=== PATIENT | female | born 1975 | race Caucasian/White ===

== ENCOUNTER 2018-05-15 19:39 | Emergency (ER) | payer OTHER ==
--- NOTE | 2018-05-15 20:11 | PDOC ---
Rapid Medical Evaluation Medical Evaluation: Allergies Allergy/AdvReac Type Severity Reaction Status Date / Time No Known Allergies Allergy Verified 10/05/14 14:24 I have performed a brief in-person evaluation of this patient. The patient presents with a chief complaint of: Twisted L ankle while walking yesterday. Took Advil 200 mg at 7 PM I have ordered the following: L foot/ankle xray, UCG The patient will proceed to the ED for further evaluation. 05/15/18 20:10
[2018-05-15 20:13] VITALS: BP 145/85; PULSE 85; TEMP 98.2; BMI 27.4
--- NOTE | 2018-05-15 21:19 | PDOC ---
History of Present Illness - General Chief Complaint: Injury Stated Complaint: LT FOOT PAIN Time Seen by Provider: 05/15/18 21:01 - History of Present Illness Initial Comments: 05/15/18 21:14 42-year-old female without comorbidities presents for evaluation of left ankle pain after an inversion-type injury yesterday. She did not fall and hit her head. Her only complaint is left ankle pain. She points to the lateral aspect of the left ankle as the area of her discomfort. Past History - Past Medical History Allergies/Adverse Reactions: Allergies Allergy/AdvReac Type Severity Reaction Status Date / Time No Known Allergies Allergy Verified 05/15/18 20:13 Home Medications: Ambulatory Orders Oxycodone HCl/Acetaminophen [Percocet 5/325 -] 1 tab PO Q4H PRN #20 tablet 10/05 Silver Sulfadiazine [Silvadene] 85 gm TP BID #1 tube 10/05/14 - Suicide/Smoking/Psychosocial Hx Smoking History: Never smoked Have you smoked in the past 12 months: No Information on smoking cessation initiated: No Hx Alcohol Use: No Drug/Substance Use Hx: No Substance Use Type: None Review of Systems - Review of Systems Musculoskeletal: Yes: Joint Pain *Physical Exam - Vital Signs Last Vital Signs Temp Pulse Resp BP Pulse Ox 98.2 F 85 18 145/85 100 05/15/18 20:11 05/15/18 20:11 05/15/18 20:11 05/15/18 20:11 05/15/18 20:11 - Physical Exam Comments: 05/15/18 21:16 Left ankle skin color and temperature are normal. There is mild lateral swelling. There is no tenderness about the knee, proximal fibula, or along its distal coarse. No tenderness about the medial malleolus navicular base of fifth metatarsal. Mild tenderness over the lateral malleolus and ATFL. She has no instability or gross sensorimotor deficits. She is neurovascularly intact. Moderate Sedation - Procedure Monitoring Vital Signs: Procedure Monitoring Vital Signs Temperature 98.2 F 05/15/18 20:11 Pulse Rate 85 05/15/18 20:11 Respiratory Rate 18 05/15/18 20:11 Blood Pressure 145/85 05/15/18 20:11 O2 Sat by Pulse Oximetry (%) 100 05/15/18 20:11 ED Treatment Course - ADDITIONAL ORDERS Additional order review: Laboratory Results 05/15/18 20:48 Urine HCG, Qual Negative Medical Decision Making - Medical Decision Making 05/15/18 21:17 x rays show no evidence of fracture trauma or destructive process. Left lateral ankle sprain weight-bear as tolerated with use of Aircast and crutches and follow-up with orthopedics. *DC/Admit/Observation/Transfer Diagnosis at time of Disposition: Ankle sprain - Discharge Dispostion Disposition: HOME Condition at time of disposition: Stable Decision to Admit order: No - Referrals Referrals: John Jordan MD [Staff Physician] - - Patient Instructions Printed Discharge Instructions: Ankle Sprain, DI for Ankle Sprain Additional Instructions: You may take Tylenol and Motrin for pain as directed. Return to the emergency room should symptoms worsen or go unresolved. He may weight-bear as tolerated with the use of crutches and the Aircast. Please follow-up with orthopedic surgery in 2-3 days for further evaluation and treatment options. - Post Discharge Activity
== END 2018-05-15 21:23 | disposition home or self-care (01) ==
LOC: JERFT 19:39
PROC: 2W3RX1Z Immobilization of Left Lower Leg using Splint (ICD-10-PCS; principal; 2018-05-15)
DX: S93.492A Sprain of other ligament of left ankle, initial encounter (principal); X50.1XXA Overexertion from prolonged static or awkward postures, initial encounter; Y93.89 Activity, other specified; Y92.89 Other specified places as the place of occurrence of the external cause; Y99.8 Other external cause status
CPT/HCPCS: 73610-TC-LT-FY; 73630-TC-LT; 84703; 99281-25

== ENCOUNTER 2019-03-03 09:24 | Emergency (ER) | payer OTHER ==
[2019-03-03 09:32] VITALS: BP 131/74; PULSE 75; TEMP 98.1; BMI 34.3
[2019-03-03] MEDS ORDERED: IBUPROFEN 400 MG TABLET (FP) PO ONE ×3 (10:35→10:55)
--- NOTE | 2019-03-03 10:57 | PDOC ---
History of Present Illness - General Chief Complaint: Injury Stated Complaint: INJURY Time Seen by Provider: 03/03/19 09:56 History Source: Patient - History of Present Illness Occurred: reports: other Severity: reports: moderate Upper Extremity Pain Location: left: elbow Method of Injury: reports: fell Past History - Past Medical History Allergies/Adverse Reactions: Allergies Allergy/AdvReac Type Severity Reaction Status Date / Time No Known Allergies Allergy Verified 03/03/19 09:32 Home Medications: Ambulatory Orders Oxycodone HCl/Acetaminophen [Percocet 5/325 -] 1 tab PO Q4H PRN #20 tablet 10/05 Silver Sulfadiazine [Silvadene] 85 gm TP BID #1 tube 10/05/14 Ibuprofen [Motrin -] 600 mg PO QID #28 tablet 03/03/19 COPD: No - Psycho Social/Smoking Cessation Hx Smoking History: Never smoked Have you smoked in the past 12 months: No Information on smoking cessation initiated: No Hx Alcohol Use: No Drug/Substance Use Hx: No Substance Use Type: None Review of Systems - Review of Systems Musculoskeletal: Yes: Joint Pain. No: Joint Swelling Neurological: No: Numbness, Tingling, Weakness *Physical Exam - Vital Signs Last Vital Signs Temp Pulse Resp BP Pulse Ox 98.1 F 75 17 131/74 100 03/03/19 09:30 03/03/19 09:30 03/03/19 09:30 03/03/19 09:30 03/03/19 09:30 - Physical Exam General Appearance: Yes: Appropriately Dressed, Mild Distress HEENT: positive: Normal Voice Neck: positive: Supple Respiratory/Chest: negative: Respiratory Distress Extremity: positive: Normal Inspection, Tender (to medial L elbow, no swelling, FROMI, NVI) Integumentary: positive: Dry, Warm Neurologic: positive: Fully Oriented, Alert, Normal Mood/Affect ED Treatment Course - RADIOLOGY Radiology Studies Ordered: Category Date Time Status ELBOW-LEFT [RAD] Stat Radiology 03/03/19 10:35 Ordered Medical Decision Making - Medical Decision Making 03/03/19 10:55 43-year-old female no significant history here with left elbow pain status post fall several days ago. No swelling. Has not taken anything for pain See exam Elbow sprain X-ray negative for fracture -Sling -dc w/ pain control-pmd f/u as needed - Discharge - Discharge Information Problems reviewed: Yes Clinical Impression/Diagnosis: Elbow sprain Qualifiers: Encounter type: initial encounter Laterality: left Qualified Code(s): S53.402A - Unspecified sprain of left elbow, initial encounter - Additional Discharge Information Prescriptions: Ibuprofen [Motrin -] 600 mg PO QID #28 tablet - Follow up/Referral Referrals: Henry Tamayo MD [Primary Care Provider] - - Patient Discharge Instructions Patient Printed Discharge Instructions: DI for Elbow Sprain Additional Instructions: [place]ter radiografa del codo no muestra fractura. Lo ms probable es que hayas sufrido un esguince. [place] Motrin o Tylenol para el dolor y use eliana honda para mayor comodidad hasta que los sntomas desaparezcan - Post Discharge Activity
== END 2019-03-03 11:04 | disposition home or self-care (01) ==
LOC: JERFT 09:24
DX: S53.402A Unspecified sprain of left elbow, initial encounter (principal); W01.0XXA Fall on same level from slipping, tripping and stumbling without subsequent striking against object, initial encounter; Y93.89 Activity, other specified; Y92.89 Other specified places as the place of occurrence of the external cause; Y99.8 Other external cause status
CPT/HCPCS: 73070-TC-LT-FY; 99281-25

== ENCOUNTER 2020-01-24 12:04 | Emergency (ER) | payer OTHER ==
[2020-01-24 12:10] VITALS: BP 146/78; PULSE 80; TEMP 98.8; BMI 32.5
[2020-01-24] MEDS ORDERED: LIDOCAINE 5% TOPICAL PATCH TP ONE (12:45)
[2020-01-24] MEDS ORDERED: LIDOCAINE 5% TOPICAL PATCH ONE (12:47)
--- NOTE | 2020-01-24 12:52 | PDOC ---
History of Present Illness - General Chief Complaint: Back Pain Stated Complaint: BACK PAIN FOR ONE MONTH Time Seen by Provider: 01/24/20 12:25 History Source: Patient Exam Limitations: Clinical Condition - History of Present Illness Initial Comments: 01/24/20 12:47 Patient with no significant past medical history present with complaint of 1 month history right lower back pain which has been intermittent which is described as cramping pain to right lower back. Denies radiculopathy. Patient reported pain is mild today and only have 2 out of 10 pain. Denies urinary frequency, dysuria, burning urination or urgency. 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 Denies any other symptoms Is this a multiple visit Asthma Patient?: No Timing/Duration: other (1 month) Past History - Medical History Allergies/Adverse Reactions: Allergies Allergy/AdvReac Type Severity Reaction Status Date / Time No Known Allergies Allergy Verified 01/24/20 12:09 Home Medications: Ambulatory Orders Oxycodone HCl/Acetaminophen [Percocet 5/325 -] 1 tab PO Q4H PRN #20 tablet 10/05/14 Silver Sulfadiazine [Silvadene] 85 gm TP BID #1 tube 10/05/14 Ibuprofen [Motrin -] 600 mg PO QID #28 tablet 03/03/19 Cyclobenzaprine HCl [Flexeril 10 mg] 10 mg PO BID PRN #10 tablet 10/15/19 Methocarbamol [Robaxin -] 500 mg PO BID PRN #14 tablet 01/24/20 Methylprednisolone [Medrol Dose Kashif] 4 mg PO ASDIR #21 tablet 01/24/20 COPD: No - Reproductive History Is Patient Now?: No - Psycho-Social/Smoking History Smoking History: Never smoked Have you smoked in the past 12 months: No Information on smoking cessation initiated: No - Substance Abuse Hx (Audit-C & DAST Scrn) How often the patient has a drink containing alcohol: Never Score: In Men: 4 or > Positive; In Women: 3 or > Positive: 0 Screen Result (Pos requires Nsg. Audit-10AR): Negative In the last yr the pt used illegal drug/Rx for NonMed reason: No Score: Yes response is considered Positive: 0 Screen Result (Positive result requires Nsg. DAST-10): Negative Review of Systems - Review of Systems Able to Perform ROS?: Yes Is the patient limited Faroese proficient: No Constitutional: No: Chills, Fever, Malaise HEENTM: No: Symptoms Reported, See HPI, Eye Pain, Blurred Vision, Tearing, Recent change in vision, Double Vision, Cataracts, Ear Pain, Ocular Prothesis, Ear Discharge, Nose Pain, Nose Congestion, Tinnitus, Nose Bleeding, Hearing Loss, Throat Pain, Throat Swelling, Mouth Pain, Dental Problems, Difficulty Swallowing, Mouth Swelling, Other Respiratory: No: Symptoms reported, See HPI, Cough, Orthopnea, Shortness of Breath, SOB with Exertion, SOB at Rest, Stridor, Wheezing, Productive cough, Hemoptysis, Other Cardiac (ROS): No: Symptoms Reported, See HPI, Chest Pain, Edema, Irregular Heart Rate, Lightheadedness, Palpitations, Syncope, Chest Tightness, Other ABD/GI: No: Symptoms Reported, See HPI, Nausea, Vomiting Musculoskeletal: Yes: Symptoms Reported, See HPI, Back Pain (Right low back) Integumentary: No: Symptoms Reported, See HPI Neurological: No: Numbness, Paresthesia, Tingling All Other Systems: Reviewed and Negative *Physical Exam - Vital Signs Last Vital Signs Temp Pulse Resp BP Pulse Ox 98.8 F 80 19 146/78 99 01/24/20 12:06 01/24/20 12:06 01/24/20 12:06 01/24/20 12:06 01/24/20 12:06 - Physical Exam 01/24/20 12:50 GENERAL: Well developed, well nourished. Awake and alert. No acute distress. CARDIOVASCULAR: Regular rate and rhythm. No murmurs, rubs, or gallops. PULMONARY: No evidence of respiratory distress. Lungs clear to auscultation bilaterally. No wheezing, rales or rhonchi. ABDOMINAL: Soft. Non-tender. Non-distended. No rebound or guarding. No organomegaly. Normoactive bowel sounds MUSCULOSKELETAL : No tenderness over posterior paravertebral muscle of lumbosacral spine of T8-T10 on bilateral sides. No midline tenderness. No bony deformities EXTREMITIES: No cyanosis. No clubbing. No edema. No calf tenderness. SKIN: Warm and dry. Normal capillary refill. No rashes. No jaundice. NEUROLOGICAL: Alert, awake, appropriate. No motor deficits in the lower extremities. Gait is normal without ataxia. PSYCHIATRIC: Cooperative. Good eye contact. Appropriate mood and affect. General Appearance: Yes: Nourished, Appropriately Dressed. No: Apparent Distress Medical Decision Making - Medical Decision Making 01/24/20 12:48 Patient with no significant past medical history present with complaint of 1 month history right lower back pain which has been intermittent which is described as cramping pain to right lower back. Denies radiculopathy. Patient reported pain is mild today and only have 2 out of 10 pain. Denies urinary frequency, dysuria, burning urination or urgency. 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 Denies any other symptoms Clinical exam unremarkable. No back tenderness elicited on exam. No midline tenderness. No radiculopathy. No abdominal tenderness. Patient symptoms likely back strain versus less likely cystitis. Lidocaine patch ordered for back pain. UA and urine culture urine hCG ordered to rule out or cystitis. Patient to be discharged home on naproxen and Robaxin PRN for pain and spasm with orthopedics follow-up as needed if normal urine 01/24/20 13:56 Urine negative. UA shows some WBCs but given patient is symptomatic of urinary symptoms, will wait for urine culture to treat. Patient stable for discharge on Medrol Kashif for inflammatory effect and Robaxin for spasm with advised to do hot compresses with neurosurgery and PCP follow-up Discharge - Discharge Information Problems reviewed: Yes Clinical Impression/Diagnosis: Musculoskeletal back pain Condition: Stable Disposition: HOME - Admission No - Additional Discharge Information Prescriptions: Methylprednisolone [Medrol Dose Kashif] 4 mg PO ASDIR #21 tablet Methocarbamol [Robaxin -] 500 mg PO BID PRN #14 tablet PRN Reason: Back Pain - Follow up/Referral Referrals: Dereck Pedraza MD, [facility] [Staff Physician] - - Patient Discharge Instructions Patient Printed Discharge Instructions: Low Back Pain Additional Instructions: Your urine was normal and shows no infection. Your pain is likely from muscle pain. Take prescribed medication as prescribed for pain and spasm. Apply heat to lower back as needed for pain. Follow-up referred to orthopedic extension specialist if symptoms persist for more than 4 days Print Language: GIBRALTARIAN - Post Discharge Activity Work/Back to School Note: Back to Work
[2020-01-24 13:42] LABS: EPI CELLS 21 /uL (0-25.1); HYALINE CASTS 0 /uL (0-3.1); URINE APPEARANCE CLEAR; URINE BACTERIA 1026 /uL (0-1359); URINE BILIRUBIN NEGATIVE (NEGATIVE); URINE COLOR YELLOW; URINE GLUCOSE (UA) NEGATIVE (NEGATIVE); URINE KETONE NEGATIVE (NEGATIVE); URINE LEUK ESTERASE NEGATIVE (NEGATIVE); URINE NITRITE NEGATIVE (NEGATIVE); URINE PROTEIN 2+ (NEGATIVE); URINE RBC 16 /uL (0-23.9); URINE UROBILINOGEN 0.2 mg/dL (0.2-1.0); URINE WBC 36 /uL (0-25.8)
[2020-01-24 13:51] LABS: HCG,QUALITATIVE URINE NEGATIVE
== END 2020-01-24 13:57 | disposition home or self-care (01) ==
LOC: JERFT 12:04
DX: M54.9 Dorsalgia, unspecified (principal)
CPT/HCPCS: 81003; 84703; 87086; 99284-25

== ENCOUNTER 2020-09-01 17:51 | Emergency (ER) | payer OTHER ==
[2020-09-01 18:04] VITALS: TEMP 98.5; BMI 32.4
[2020-09-01] MEDS ORDERED: ACETAMINOPHEN 1000 MG/100 ML VIAL (NON FORMULARY) IVPB ONE (19:34)
[2020-09-01] MEDS ORDERED: ONDANSETRON 4 MG/2 ML VIAL IVPUSH ONE (19:34)
[2020-09-01] MEDS ORDERED: SODIUM CHLORIDE 1,000 ML IV STA (19:34)
[2020-09-01] MEDS ORDERED: ACETAMINOPHEN INJECTION 100 ML IVPB ONE (19:47)
[2020-09-01 20:40] LABS: BASO % 0.6 % (0-2.0); EOS % 1.9 % (0-4.5); HEMATOCRIT 33.8 % (32.4-45.2); HEMOGLOBIN 10.8 GM/dL (10.7-15.3); LYMPH % 20.1 % (8-40); MCH 21.6 pg (25.7-33.7); MCHC 31.8 g/dl (32.0-36.0); MEAN PLT VOLUME 9.2 fl (7.5-11.1); MONO % 8.3 % (3.8-10.2); NEUT % 69.1 % (42.8-82.8); PLATELET COUNT 282 K/MM3 (134-434); RBC 4.97 M/mm3 (3.60-5.2); RDW 17.9 % (11.6-15.6); WHITE BLOOD COUNT 5.3 K/mm3 (4.0-10.0)
[2020-09-01 20:48] LABS: PROTHROMBIN TIME (PATIENT) 12.1 SEC (9.7-13.0)
[2020-09-01 20:51] LABS: CHLORIDE 99 mmol/L (98-107); SODIUM 137 mmol/L (136-145)
[2020-09-01 20:53] LABS: CALCIUM 8.7 mg/dL (8.5-10.1); GLUCOSE,RANDOM 142 mg/dL (74-106)
[2020-09-01 20:53] LABS: EPI CELLS >36 /uL (0-25.1); HYALINE CASTS 5 /uL (0-3.1); URINE APPEARANCE CLOUDY; URINE BACTERIA 1435 /uL (0-1359); URINE BILIRUBIN NEGATIVE (NEGATIVE); URINE COLOR YELLOW; URINE GLUCOSE (UA) NEGATIVE (NEGATIVE); URINE KETONE NEGATIVE (NEGATIVE); URINE LEUK ESTERASE NEGATIVE (NEGATIVE); URINE NITRITE NEGATIVE (NEGATIVE); URINE PROTEIN 3+ (NEGATIVE); URINE WBC 46 /uL (0-25.8)
[2020-09-01 20:54] LABS: ALBUMIN 2.8 g/dl (3.4-5.0); ANION GAP 6 MMOL/L (8-16); BLOOD UREA NITROGEN 10.8 mg/dL (7-18); CO2 32 mmol/L (21-32); LIPASE 129 U/L (73-393)
[2020-09-01 20:56] LABS: SGPT/ALT 24 U/L (13-61)
[2020-09-01 20:57] LABS: CREATININE 0.7 mg/dL (0.55-1.3); SGOT/AST 19 U/L (15-37)
[2020-09-01 20:58] LABS: BILIRUBIN,TOTAL 0.3 mg/dL (0.2-1); TOT PROT 6.4 g/dl (6.4-8.2)
[2020-09-01 20:59] LABS: ALK PHOS 72 U/L (45-117)
[2020-09-01 21:08] LABS: HCG,QUALITATIVE URINE Positive
[2020-09-01 22:14] LABS: ANISOCYTOSIS 1+; MACROCYTOSIS 0; PLATELET ESTIMATE NORMAL; TEAR DROP CELLS 1+
[2020-09-01 22:39] LABS: URINE RBC 147 /uL (0-23.9)
[2020-09-01 23:26] LABS: EPI CELLS >36 /uL (0-25.1); HYALINE CASTS 2 /uL (0-3.1); URINE APPEARANCE CLEAR; URINE BACTERIA 413 /uL (0-1359); URINE BILIRUBIN NEGATIVE (NEGATIVE); URINE COLOR YELLOW; URINE GLUCOSE (UA) NEGATIVE (NEGATIVE); URINE KETONE NEGATIVE (NEGATIVE); URINE LEUK ESTERASE NEGATIVE (NEGATIVE); URINE NITRITE NEGATIVE (NEGATIVE); URINE PROTEIN 2+ (NEGATIVE); URINE RBC 105 /uL (0-23.9); URINE WBC 10 /uL (0-25.8)
[2020-09-02 00:06] VITALS: BP 142/76; PULSE 89
== END 2020-09-02 00:06 | disposition home or self-care (01) ==
LOC: JER 17:51
PROC: 3E0333Z Introduction of Anti-inflammatory into Peripheral Vein, Percutaneous Approach (ICD-10-PCS; principal; 2020-09-01)
PROC: 3E033GC Introduction of Other Therapeutic Substance into Peripheral Vein, Percutaneous Approach (ICD-10-PCS; 2020-09-01)
PROC: 3E0337Z Introduction of Electrolytic and Water Balance Substance into Peripheral Vein, Percutaneous Approach (ICD-10-PCS; 2020-09-01)
DX: R31.9 Hematuria, unspecified (principal); R10.9 Unspecified abdominal pain
CPT/HCPCS: 36415; 71046-TC-FY; 74176-TC; 76817-TC; 80053; 81003; 82550; 83690; 84484; 84702; 84703; 85025; 85610; 87086; 87804; 99285-25; C9803; J0131; U0003; U0005

== ENCOUNTER 2020-11-14 13:47 | Emergency (ER) | payer OTHER ==
[2020-11-14 14:05] VITALS: BP 126/86; PULSE 90; TEMP 98; BMI 39.1
[2020-11-14] MEDS ORDERED: diphenhydrAMINE HCL 25 MG CAPSULE (FP) PO ONE ×3 (14:51→14:57)
[2020-11-14] MEDS ORDERED: predniSONE 20 MG TABLET (UD) PO ONE ×2 (14:58→15:17)
[2020-11-14] MEDS ORDERED: predniSONE 20 MG TABLET (UD) ONE ×2 (15:05→15:18)
== END 2020-11-14 16:09 | disposition home or self-care (01) ==
LOC: JERFT 13:47 → JER 13:47 → JERFT 16:09
DX: L23.7 Allergic contact dermatitis due to plants, except food (principal)
CPT/HCPCS: 99283-25

== ENCOUNTER 2020-12-12 22:53 | Emergency (ER) | payer OTHER ==
[2020-12-12 23:10] VITALS: TEMP 98.1; BMI 40.3
[2020-12-13] MEDS ORDERED: FAMOTIDINE 20 MG TABLET PO ONE (00:20)
[2020-12-13] MEDS ORDERED: predniSONE 20 MG TABLET (UD) PO ONE (00:20)
[2020-12-13] MEDS ORDERED: DICLOXACILLIN SODIUM 250 MG CAPSULE PO ONE (00:20)
[2020-12-13] MEDS ORDERED: diphenhydrAMINE HCL 50 MG CAPSULE PO ONE (00:20)
[2020-12-13] MEDS ORDERED: predniSONE 20 MG TABLET (UD) ONE (00:33)
[2020-12-13] MEDS ORDERED: diphenhydrAMINE HCL 25 MG CAPSULE (FP) PO ONE (00:33)
[2020-12-13] MEDS ORDERED: FAMOTIDINE 20 MG TABLET ONE (00:33)
[2020-12-13 01:32] VITALS: BP 151/88; PULSE 83
== END 2020-12-13 01:33 | disposition home or self-care (01) ==
LOC: JER 22:53
DX: T78.40XA Allergy, unspecified, initial encounter (principal)
CPT/HCPCS: 99283-25

== ENCOUNTER 2021-05-22 17:35 | Emergency (ER) | payer OTHER ==
[2021-05-22 18:27] VITALS: BP 116/77; PULSE 82; TEMP 98.7; BMI 34.3
== END 2021-05-22 20:05 | disposition home or self-care (01) ==
LOC: JERFT 17:35
DX: T59.893A Toxic effect of other specified gases, fumes and vapors, assault, initial encounter (principal)
CPT/HCPCS: 99282-25

== ENCOUNTER 2021-10-04 22:45 | Emergency (ER) | payer OTHER ==
[2021-10-04 23:02] VITALS: BP 119/78; PULSE 80; TEMP 98.9; BMI 39.9
== END 2021-10-05 01:20 | disposition home or self-care (01) ==
LOC: JER 22:45
DX: J06.9 Acute upper respiratory infection, unspecified (principal)
CPT/HCPCS: 99282-25

== ENCOUNTER 2021-12-13 09:53 | Emergency (ER) | payer OTHER ==
[2021-12-13 10:20] VITALS: BP 137/84; PULSE 74; TEMP 98; BMI 43.2
[2021-12-13] MEDS ORDERED: ACETAMINOPHEN 500 MG TABLET (FP) PO ONE (10:30)
[2021-12-13] MEDS ORDERED: ACETAMINOPHEN 500 MG TABLET (FP) ONE (12:24)
== END 2021-12-13 16:39 | disposition home or self-care (01) ==
LOC: JER 09:53
DX: H10.33 Unspecified acute conjunctivitis, bilateral (principal)
CPT/HCPCS: 0241U-QW; 99283-25

== ENCOUNTER 2022-12-09 20:54 | Emergency (ER) | payer OTHER ==
[2022-12-09 20:58] VITALS: BP 143/90; PULSE 104; RESP 19; TEMP 99.1; BMI 43.2
== END 2022-12-10 00:17 | disposition home or self-care (01) ==
LOC: JERFT 20:54
DX: U07.1 COVID-19 (principal); R50.9 Fever, unspecified; R51.9 Headache, unspecified; R07.0 Pain in throat; R63.0 Anorexia; R43.9 Unspecified disturbances of smell and taste; R53.83 Other fatigue
CPT/HCPCS: 0241U-QW; 99283-25

== ENCOUNTER 2023-05-12 19:49 | Emergency (ER) | payer OTHER ==
[2023-05-12 20:12] VITALS: BP 140/79; PULSE 83; RESP 18; TEMP 98.9; BMI 36.6
== END 2023-05-12 22:02 | disposition home or self-care (01) ==
LOC: JERFT 19:49
DX: R05.9 Cough, unspecified (principal); R50.9 Fever, unspecified; J02.9 Acute pharyngitis, unspecified; J06.9 Acute upper respiratory infection, unspecified; Z20.822 Contact with and (suspected) exposure to COVID-19
CPT/HCPCS: 0241U-QW; 99283-25